=== PATIENT | female | born 1995 | race Caucasian/White ===

== ENCOUNTER 2019-04-09 12:04 | Day surgery (SDC) | payer OTHER ==
[2019-04-08 18:26] VITALS: BMI 19.9
[2019-04-09] MEDS ORDERED: ceFAZolin SODIUM 1 GM VIAL IVPB ONE (13:36)
--- NOTE | 2019-04-09 15:22 | OP ---
Operative Note - Note: Operative Date: 04/09/19 Pre-Operative Diagnosis: Rt ovarian cyst. Pelvic pain Operation: laparoscopic excision of rt ovarian cyst. Retrieval of benign foreign body Surgeon: Kelvin Arce Anesthesia: General Specimens Removed: cyst fluid. cyst wall. old free nylon suture Estimated Blood Loss (mls): 25 Operative Report Dictated: Yes
[2019-04-09] MEDS ORDERED: ONDANSETRON 4 MG/2 ML VIAL IVPUSH PRN (15:56)
[2019-04-09] MEDS ORDERED: oxyCODONE HCL 5 MG TABLET PO PRN (15:56)
--- NOTE | 2019-04-09 15:58 | SURG ---
Surgery Sewer Note Sewer: Brianna Bridges PA-C Date of Service: 04/09/19 Diagnosis: Rt ovarian cyst. Pelvic pain Procedure: laparoscopic excision of rt ovarian cyst. Retrieval of benign foreign body I was present for the entirety of the operative procedure. For further detail, please refer to operative report. Visit type - Case Type Case Type: Scheduled - Emergency Emergency Visit: No - New patient This patient is new to me today: Yes Date on this admission: 04/09/19
[2019-04-09] MEDS ORDERED: LACTATED RINGERS SOLUTION 1,000 ML IV SCH (16:00)
--- NOTE | 2019-04-09 16:34 | OP ---
DATE OF OPERATION: 04/09/2019 PREOPERATIVE DIAGNOSES: 1. Large, persistent, right ovarian cyst. 2. Pelvic pain. POSTOPERATIVE DIAGNOSES: 1. Large, persistent, right ovarian cyst. 2. Pelvic pain. 3. Foreign body, nylon suture. SURGEON: Kelvin Arce MD SUPERINTENDENT TERMINAL: COLUMBA Szymanski ANESTHESIA: General. Sandra Clark MD PROCEDURE AND FINDINGS: Under general anesthesia, in dorsal lithotomy position, patient was examined. Uterus was anteverted, normal size. IUD strings were seen and palpated. Right adnexal mass, about 8 to 10 cm, posterior, mobile, was appreciated. Left adnexa was within normal limits. Sponge stick and tenaculum was placed in vagina and on the cervix respectively. Abdomen was prepped and draped for the laparoscopy. Peritoneal cavity was entered through an intraumbilical vertical incision with Veress needle and insufflated with carbon dioxide. An 11-mm scope was placed in the abdomen. The above findings were noted. In addition, in the pelvic area, a free floating piece of what looked like blue nystagmus was noted. It was unattached. Two additional 5-mm ports were placed to the right and left of the umbilicus. They were used for lavage as well as for manipulation and dissection. Nylon suture that was free floating was indeed unattached and it was removed without any problems. A large cyst which was appreciated was entered with the laparoscopic needle and about 200 of straw-like fluid was suctioned and sent for cytology. With the cyst deflated, using LigaSure device, the cavity was entered. The cyst was totally removed and most of the ovarian tissue was preserved. The internal capsule appeared to be removed completely. A few bleeding points in the dissection area were secured by coagulation. The 10-mm scope that was used in the umbilical incision was then replaced with 5-mm scope in the side port. EndoCatch was placed in the abdomen , and all parts of the excised cyst were removed without difficulty. The area was thoroughly lavaged and hemostasis was noted to be perfect. All potentially spilled cyst fluid was lavaged as well. Pelvis was examined and so was the rest of the abdomen. Uterus was normal size. Both fallopian tubes were within normal limits, and both ovaries at that stage were normal as well. In the process, 2nd small cyst was also drained. Hemostasis was excellent, and procedure was completed. Instruments and trocars were removed under direct vision. Gas was allowed to escape from the abdomen. Umbilical incision was closed with 2 Vicryl 0 sutures on the fascia and skin was approximated with 3-0 Biosyn subcuticular. The other 2 incisions were closed with Biosyn 3-0 on the skin, subcuticular as well. Dermabond was used as well as bandaids to dress the incisions. Blood loss was about 25 mL. The patient withstood the procedure very well and was transferred to the PACU, comfortable and well. MD NOHELIA CAO/[id number] MTDD
[2019-04-09 18:21] VITALS: BP 91/52; PULSE 85; TEMP 98
--- NOTE | 2019-04-14 19:41 | PATH ---
Cytology Non-Gynecological Report Patient Name: ABELARDO CHAUDHARI Med. Rec. #: [id number] /Age/Gender: 1995 (Age: 24) / F Account: [id number] Location: [facility] SURGICAL Taken: 04/09/2019 Received: 04/10/2019 Reported: 04/14/2019 Physicians: Kelvin Arce MD DOCTOR TEST MJaki Specimen(s) Received OVARIAN CYST FLUID Clinical History Right ovarian cyst Final Diagnosis OVARIAN CYST FLUID, RIGHT, FOR CYTOLOGY: SATISFACTORY FOR EVALUATION. NEGATIVE FOR MALIGNANT CELLS. CYSTIC LESION WITH RARE MACROPHAGES AND SMALL EPITHELIAL CELLS IN A BACKGROUND OF ABUNDANT PROTEINACEOUS MATERIAL. Comment: Focal degenerative changes present. See concurrent material ([id number]). Electronically Signed Sharmaine Anthony M.D. Gross Description Approximately 100 cc of yellow fluid received fresh. One cytofunnel prepared and Pap stained. One cellblock prepared.
--- NOTE | 2019-04-14 19:46 | PATH ---
Surgical Pathology Report Patient Name: ABELARDO CHAUDHARI [facility]. Rec. #: [id number] /Age/Gender: 1995 (Age: 24) / F Account: [id number] Location: [facility] SURGICAL Taken: 04/09/2019 Received: 04/10/2019 Reported: 04/14/2019 Physicians: Kelvin Arce MD Specimen(s) Received A: FOREIGN BODY B: RIGHT OVARIAN CYST Clinical History Right ovarian cyst Final Diagnosis A. FOREIGN BODY, REMOVAL: FOREIGN BODY MATERIAL (BLUE SUTURE). MACROSCOPIC DIAGNOSIS. B. OVARIAN CYST, RIGHT, LAPAROSCOPIC CYSTECTOMY: SEROUS CYSTADENOMA, FRAGMENTS. SCANT OVARIAN PARENCHYMA WITH CYSTIC FOLLICLES. Comment: See current cytology ([id number]). Electronically Signed Sharmaine Anthony M.D. Gross Description A. Received fresh labeled "foreign body," is an 11.5 cm in length portion of blue suture material. No soft tissue is present. No sections are submitted, gross only. B. Received in formalin labeled "right ovarian cyst," is a 6.0 x 4.5 x 0.7 cm aggregate of brown-contreras, irregular portions of soft tissue, possibly consistent with a fragmented ovarian cyst. The cyst lining appears smooth. Sectioning reveals focal ovarian parenchyma. Jigger Operator sections are submitted in 6 cassettes. /04/13/2019 [facility]04/13/2019
== END 2019-04-09 18:15 | disposition home or self-care (01) ==
LOC: JASU-SURG 12:04
PROVIDERS: ATTEND Specialist
PROC: 0UB04ZZ Excision of Right Ovary, Percutaneous Endoscopic Approach (ICD-10-PCS; principal; 2019-04-09 13:00)
DX: N83.201 Unspecified ovarian cyst, right side (principal)
CPT/HCPCS: 84703; 88108; 88300-TC; 88305-TC; 88307-TC; 94760

== ENCOUNTER 2020-07-06 04:29 | Day surgery (SDC) | payer OTHER ==
[2020-07-04 19:00] VITALS: BMI 21.4
[~2020-07-06 04:29] MED LIST: FERRIC SUBSULFATE 500 ML BOTTLE TP ONE
[2020-07-06] MEDS ORDERED: MIDAZOLAM HCL 2 MG/2 ML SINGLE DOSE VIAL ONE ×2 (13:25→13:40)
[2020-07-06] MEDS ORDERED: LIDOCAINE 1%/EPI 1:100000 (50 ML MULTI DOSE VIAL) ONE (13:45)
[2020-07-06] MEDS ORDERED: FERRIC SUBSULFATE 500 ML BOTTLE TP ONE (14:02)
[2020-07-06] MEDS ORDERED: LIDOCAINE 1%/EPI 1:100000 (20 ML MULTI DOSE VIAL) IJ ONE (14:02)
[2020-07-06] MEDS ORDERED: IBUPROFEN 400 MG TABLET (FP) PO PRN (14:22)
[2020-07-06] MEDS ORDERED: ACETAMINOPHEN 325 MG TABLET (FP) PO PRN (14:22)
--- NOTE | 2020-07-06 14:22 | OP ---
Operative Note - Note: Operative Date: 07/06/20 Pre-Operative Diagnosis: Cervical dysplasia. IUD in place. Operation: Colposcopy. R/O IUD. LEEP Post-Operative Diagnosis: Same as Pre-op Surgeon: Kelvin Arce Anesthesia: Local, MAC Specimens Removed: T-zone flat cone Estimated Blood Loss (mls): 3 Operative Report Dictated: Yes
[2020-07-06] MEDS ORDERED: IBUPROFEN 600 MG TABLET (FP) PO PRN (14:23)
--- NOTE | 2020-07-06 14:32 | DS ---
Physical Examination Vital Signs: Vital Signs Temperature 98.0 F 07/06/20 10:39 Pulse Rate 74 07/06/20 10:39 Respiratory Rate 18 07/06/20 10:39 Blood Pressure 108/66 07/06/20 10:39 O2 Sat by Pulse Oximetry (%) 99 07/06/20 10:40 Constitutional: Yes: Well Nourished, No Distress, Calm Eyes: Yes: WNL, Conjunctiva Clear, EOM Intact HENT: Yes: WNL, Atraumatic, Normocephalic Neck: Yes: WNL, Supple, Trachea Midline Cardiovascular: Yes: WNL, Regular Rate and Rhythm Respiratory: Yes: WNL, Regular, CTA Bilaterally Gastrointestinal: Yes: WNL, Normal Bowel Sounds Musculoskeletal: Yes: WNL Extremities: Yes: WNL Edema: No Integumentary: Yes: WNL Neurological: Yes: WNL, Alert, Oriented ...Motor Strength: WNL Psychiatric: Yes: WNL Discharge Summary Problems reviewed: Yes Reason For Visit: CERVICAL DYSPLASIA Procedures: Principal: Colposcopy. R/O IUD. LEEP. Hospital Course: uneventful Condition: Good - Instructions Diet, Activity, Other Instructions: Dr. Arce [employer] MANAGER discharge instructions Physical activity: Resume your normal everyday activity as tolerated no heavy lifting or exercise until seen by your surgeon. No sex. You may walk unlimited amounts and climb stairs. You may resume driving the car when you feel safe and comfortable behind the wheel. Diet: There are no dietary restrictions. Eat healthy, high-fiber foods. Drink 6 to 8 glasses of liquid each day. This will assist in keeping your bowels are regular. Pain management: You may take Tylenol (acetaminophen) or Ibuprofen (for example, Motrin, Advil etc.) every 6 hours as needed for pain. Call Dr. Arce for any of the following: * Severe pain not relieved by medication * Fever of 101 or higher * Excessive bleeding or drainage. Call the office at [phone] for an appointment in seven to 10 days. Disposition: HOME - Home Medications Comprehensive Discharge Medication List: Ambulatory Orders Multivitamin [Multiple Vitamins] 1 each PO DAILY 07/04/20
[2020-07-06 14:33] VITALS: TEMP 97.1
[2020-07-06 15:08] VITALS: PULSE 66
[2020-07-06] MEDS ORDERED: IBUPROFEN 600 MG TABLET (FP) PO ONE (15:27)
[2020-07-06 16:02] VITALS: BP 118/72
--- NOTE | 2020-07-06 19:26 | OP ---
DATE OF OPERATION: 07/06/2020 PREOPERATIVE DIAGNOSIS: 1. Cervical dysplasia. 2. Intrauterine device in place. POSTOPERATIVE DIAGNOSIS: 1. Cervical dysplasia. 2. Intrauterine device in place. PROCEDURE: 1. Colposcopy. 2. Removal of an intrauterine device. 3. Loop electrosurgical excision procedure of the cervix. SURGEON: Vinod Arce MD. ANESTHESIA: MAC and local. ANESTHESIOLOGIST: Mario Araujo MD. PROCEDURE AND FINDINGS: Under very light MAC anesthesia, speculum was introduced. Vulva, vagina, and cervix were washed with solution of acetic acid and then cervix was soaked for a few minutes. Colposcope was activated, and cervix was examined under various magnifications. Tight transformation zone was seen. No significant lesion extending to the ectocervix visualized. IUD was grasped with the ring forceps and removed without difficulty. It was a Paragard and it was removed intact. Colposcope was withdrawn, and cervix was painted with Lugol solution. A few tiny Lugol-free areas were noted outside of the transformation zone. Using solution of lidocaine with epinephrine, 4 quadrants, intracervical block was inserted. About 10 mL of solution used. 12 x 20 mm loop was then used. At 45 mahan of cutting power, transformation zone with surrounding tissue was excised. Excision was superficial at no more than 4 to 5 mm. Full transformation zone was removed. Specimen was sent for the pathology. The crater was then secured with the 5-mm ball at 45 mahan of coagulation power. Monsel paste was placed inside of the crater. Vagina was cleaned, and all the instruments were withdrawn. Two specimens were sent for evaluation. IUD for just identification and part of cervix with transformation zone for full pathology. Patient tolerated procedure very well. Awake, stable, and comfortable, she was transferred to the PACU. EBL was 10 cc. VINOD ARCE MD [id number] MTDRubi
--- NOTE | 2020-07-08 16:24 | PATH ---
Surgical Pathology Report Patient Name: ABELARDO CHAUDHARI [facility]. Rec. #: [id number] /Age/Gender: 1995 (Age: 25) / F Account: [id number] Location: [facility] SURGICAL Taken: 07/06/2020 Received: 07/07/2020 Reported: 07/08/2020 Physicians: Kelvin Arce MD Specimen(s) Received A: IUD B: LEEP CONE BIOPSY Clinical History Cervical dysplasia Final Diagnosis A. INTRAUTERINE DEVICE (IUD), REMOVAL: FOREIGN BODY MATERIAL CONSISTENT WITH INTRAUTERINE DEVICE (IUD). MACROSCOPIC DIAGNOSIS. B. 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 SURGICAL RESECTION MARGINS ARE INVOLVED BY HIGH GRADE DYSPLASIA. TRANSFORMATION ZONE: PRESENT. Comment: Case seen in intradepartmental review with consensus on diagnosis. Case discussed with Dr. Arce, 07/08/2020. Electronically Signed Sharmaine Anthony M.D. Gross Description A. Received fresh labeled "IUD," is a 3.5 cm in length white, T-shaped device with attached string, consistent with an intrauterine device. No soft tissue is present. No sections are submitted, gross only. B. Received in formalin labeled "LEEP cone biopsy," are 2 sepulveda-pink, irregular, unoriented portions of soft tissue measuring 1.4 x 0.6 x 0.2 cm and 2.5 x 0.8 x 0.5 cm, consistent with portions of cervix. The specimens are inked blue and serially sectioned. The specimen is entirely submitted in 4 cassettes as follows: 1-smaller portion of tissue; 4-6-pbaeoeixoiuo submitted larger portion of tissue. DL/07/07/2020 saudi/07/07/2020
== END 2020-07-06 16:05 | disposition home or self-care (01) ==
LOC: JASU-SURG 04:29
PROVIDERS: ATTEND Specialist
PROC: 0UPD7HZ Removal of Contraceptive Device from Uterus and Cervix, Via Natural or Artificial Opening (ICD-10-PCS; 2020-07-06)
PROC: 0UBC7ZX Excision of Cervix, Via Natural or Artificial Opening, Diagnostic (ICD-10-PCS; principal; 2020-07-06 12:00)
DX: N87.1 Moderate cervical dysplasia (principal)
CPT/HCPCS: 84703; 88300-TC; 88307-TC